=== PATIENT | female | born 1955 | race Caucasian/White ===

== ENCOUNTER 2018-03-02 10:16 | Day surgery (SDC) | payer OTHER ==
[2018-03-02] MEDS ORDERED: MIDAZOLAM 1 MG/ML 2 ML INJ ×2 (11:40)
[2018-03-02] MEDS ORDERED: FENTAnyl 50 MCG/ML VIAL (11:40)
== END 2018-03-02 13:47 | disposition home or self-care (01) ==
LOC: GIL 10:16
DX: Z12.11 Encounter for screening for malignant neoplasm of colon (principal); K64.8 Other hemorrhoids; I10 Essential (primary) hypertension
CPT/HCPCS: 45378